=== PATIENT | female | born 1970 | race Two or more races ===

== ENCOUNTER 2019-07-09 10:30 | Inpatient (IN) | payer OTHER ==
[~2019-07-09] VITALS: Ht 160 cm; Wt 61.2 kg
[2019-07-09] MEDS ORDERED: ZYRTEC10 M3 PO (12:23)
[2019-07-09] MEDS ORDERED: SINGULAIR10 MG PO (12:23)
[2019-07-09] MEDS ORDERED: LEVO-T25 MCG PO (12:23)
[2019-07-20] MEDS ORDERED: CODE1TAB37 PO (08:33)
[2019-07-20] MEDS ORDERED: NAPR500T14 PO (08:33)
== END 2019-07-20 15:17 | disposition home or self-care (01) | DRG 743 ==
LOC: EDSTATUS 10:30 → ADM 10:30 → OB/GYN 07-18 07:18 → O/R 07-18 07:18 → SURH 07-18 10:30 → OB/GYN 07-18 15:15 → SURH 07-18 17:15 → OB/GYN 07-20 15:17
PROVIDERS: ADMIT Obstetrics & Gynecology
PROC: 0UT24ZZ Resection of Bilateral Ovaries, Percutaneous Endoscopic Approach (ICD-10-PCS; 2019-07-18)
PROC: 0UT74ZZ Resection of Bilateral Fallopian Tubes, Percutaneous Endoscopic Approach (ICD-10-PCS; principal; 2019-07-18 17:15)
DX: N83.02 Follicular cyst of left ovary (principal); N83.01 Follicular cyst of right ovary; N83.8 Other noninflammatory disorders of ovary, fallopian tube and broad ligament; E03.8 Other specified hypothyroidism